=== PATIENT | female | born 1945 | race African-American/Black ===

== ENCOUNTER 2024-01-18 14:38 | Outpatient (NON) | payer MEDICARE, SELFPAY ==
[2024-01-18 18:55] LABS: Albumin Level 4.1 g/dL (3.5-5.1); Anion Gap 2 mmol/L (8-16); Blood Urea Nitrogen 17 mg/dL (7-17); Calcium 9.8 mg/dL (8.4-10.2); Carbon Dioxide 35 mmol/L (22-30); Chloride 104 mmol/L (98-107); Estimated Glomerular Filt Rate > 60; Glucose 93 mg/dL (65-110); Phosphorus 3.3 mg/dL (2.5-4.5); Potassium 3.4 mmol/L (3.4-5.0); Sodium 141 mmol/L (137-145)
[2024-01-18 19:04] LABS: NT Pro B Type Natriuretic Pept 346 pg/mL (19.9-100)
== END 2024-01-18 14:39 | disposition home or self-care (01) ==
LOC: HOME HLTH 14:41
PROVIDERS: PCP Internal Medicine Geriatric Medicine; Visit Provider Internal Medicine Geriatric Medicine
DX: I48.0 Paroxysmal atrial fibrillation (principal); I11.0 Hypertensive heart disease with heart failure; I50.9 Heart failure, unspecified; I67.4 Hypertensive encephalopathy
CPT/HCPCS: 80069; 83880